=== PATIENT | female | born 2000 | race American Indian/Alaskan Native ===

== ENCOUNTER 2020-04-03 23:13 | Emergency (ER) | payer MEDICAID ==
[2020-04-03] MEDS ORDERED: ACETAMINOPHEN 500 MG TAB PO ONE (23:51)
[2020-04-03] MEDS ORDERED: METOCLOPRAMIDE 10 MG TAB PO ONE (23:51)
[2020-04-04 00:32] LABS: Alanine Aminotransferase 38 units/L (7-56); Albumin 4.3 g/dL (3.9-5); Blood Urea Nitrogen 6 mg/dL (7-17); Calcium 9.1 mg/dL (8.4-10.2); Hemolysis Index 2
[2020-04-04 00:34] LABS: BUN/Creatinine Ratio 12
--- NOTE | 2020-04-04 01:26 | Emergency Department Report ---
<ROSE MARIE HARPER - Last Filed: 04/04/20 03:00> ED Abdominal Pain HPI - General Chief Complaint: Abdominal Pain Stated Complaint: ABD PAIN Source: patient Mode of arrival: Wheelchair Limitations: No Limitations - History of Present Illness Initial Comments: Patient is a A2 19-year-old -[place] female who is approximately 14 weeks gestation and who presents to the ED with complaint of acute onset persistent diffuse abdominal pain with nausea for the last 2 hours. Patient states that the pain has been persistent and worse with any movements. Patient denies vomiting, fever, chills, vaginal bleeding, dysuria, urinary frequency and urgency, vaginal discharge, low back pain, heavy lifting, traumatic injury, chest pain, shortness of breath, fever, chills, diarrhea or low back pain. MD Complaint: abdominal pain -: Sudden, hour(s) (2) Location: diffuse Radiation: none Migration to: no migration Severity: moderate Severity scale (0 -10): 5 Quality: cramping, aching Consistency: constant Improves With: nothing Worsens With: nothing Context: other () Associated Symptoms: denies other symptoms, nausea, anorexia. denies: vomiting, diarrhea, fever, chills, constipation, dysuria, hematemesis, hematochezia, m tho, hematuria, syncope, other - Related Data Allergies Allergy/AdvReac Type Severity Reaction Status Date / Time No Known Allergies Allergy Unverified 04/03/20 23:43 ED Review of Systems Constitutional: denies: chills, fever Eyes: denies: eye pain, eye discharge, vision change ENT: denies: ear pain, throat pain Respiratory: denies: cough, shortness of breath, wheezing Cardiovascular: denies: chest pain, palpitations Endocrine: no symptoms reported Gastrointestinal: abdominal pain, nausea. denies: vomiting, diarrhea, constipation, hematemesis Genitourinary: denies: urgency, dysuria, discharge Musculoskeletal: denies: back pain, joint swelling, arthralgia Skin: denies: rash, lesions Neurological: denies: headache, weakness, paresthesias Psychiatric: denies: anxiety, depression Hematological/Lymphatic: denies: easy bleeding, easy bruising ED Past Medical Hx - Past Medical History Previous Medical History?: No - Surgical History Past Surgical History?: Yes Additional Surgical History: oral surgery - Social History Smoking Status: Never Smoker Substance Use Type: None ED Physical Exam - General Limitations: No Limitations General appearance: alert, in no apparent distress - Head Head exam: Present: atraumatic, normocephalic, normal inspection - Eye Eye exam: Present: normal appearance, PERRL, EOMI Pupils: Present: normal accommodation - ENT ENT exam: Present: normal exam, normal orophraynx, mucous membranes moist, TM's normal bilaterally, normal external ear exam - Neck Neck exam: Present: normal inspection, full ROM. Absent: tenderness - Respiratory Respiratory exam: Present: normal lung sounds bilaterally. Absent: respiratory distress, wheezes, rales, rhonchi, chest wall tenderness, accessory muscle use, prolonged expiratory - Cardiovascular Cardiovascular Exam: Present: regular rate, normal rhythm, normal heart sounds. Absent: systolic murmur, diastolic murmur, rubs, gallop - GI/Abdominal GI/Abdominal exam: Present: soft, normal bowel sounds. Absent: tenderness, guarding, rebound, rigid, hyperactive bowel sounds, hypoactive bowel sounds, organomegaly, mass, bruit - Extremities Exam Extremities exam: Present: normal inspection, full ROM, normal capillary refill - Back Exam Back exam: Present: normal inspection, full ROM. Absent: tenderness, CVA tenderness (R), CVA tenderness (L), muscle spasm, paraspinal tenderness, vertebral tenderness, rash noted - Neurological Exam Neurological exam: Present: alert, oriented X3, CN II-XII intact, normal gait, reflexes normal - Psychiatric Psychiatric exam: Present: normal affect, normal mood - Skin Skin exam: Present: warm, dry, intact, normal color. Absent: rash ED Medical Decision Making - Lab Data Result diagrams: 04/03/20 23:57 04/03/20 23:57 - Radiology Data Radiology results: report reviewed, image reviewed Findings [facility] [address] [place] [address] Ultrasound Report Signed Patient: LISSETT CLEVELAND MR#: [id number] : 2000 Acct:[id number] Age/Sex: 19 / F ADM Date: 04/03/20 Loc: ED Attending Dr: Ordering Physician: KYLE HALL Date of Service: 04/03/20 Procedure(s): US OB >= 14 weeks Fetus Accession Number(s): [id number] cc: KYLE HALL ULTRASOUND OBSTETRIC INDICATION / CLINICAL INFORMATION: abdominal pain. Clinical Gestational Age (GA) in weeks, days: 14, 1 TECHNIQUE: Transabdominal. COMPARISON: None available. FINDINGS: Single intrauterine . Biparietal Diameter = 2.8 cm = 15, 0 weeks, days Head Circumference = 10.1 cm = 14, 5 weeks, days Abdominal Circumference = 7.0 cm = 13, 4 weeks, days Femur Length = 1.5 cm = 14, 3 weeks, days Average Ultrasound Age (AUA) = 14, 3 weeks, days Heart Rate: 149 beats per minute. Estimated Weight in grams (if calculated): Not calculated Estimated Weight Growth Percentile (if calculated): Not calculated Position: cephalic. Cervix: closed. Length in cm (if measured): 2.3 Placenta: posterofundal and free of the os. Amniotic Fluid Volume: normal Amniotic Fluid Index (ABRAM) in cm (if calculated): Not calculated. Maternal Adnexa: No significant abnormality. IMPRESSION: 1. Single, living intrauterine with estimated sonographic age of 14, 3 weeks, days. 2. No acute abnormality. Signer Name: Sudeep Dick MD Signed: 04/04/2020 2:26 AM Workstation Name: [id number] Transcribed By: DT Dictated By: Rose Marie Dick MD Electronically Authenticated By: Rose Marie Dick MD Signed Date/Time: 04/04/20225 DD/ 2 TD/TT: - Medical Decision Making This is a A2 19-year-old -[place] female who is approximately 14 weeks gestation and who presents to the ED with complaint of acute onset persistent diffuse abdominal pain with nausea for the last 2 hours. Patient states that the pain has been persistent and worse with any movements. In the ED, patient is alert and oriented x3 and is not in distress with normal vital signs. Lab test results were reviewed and are all nonactionable. Pelvic ultrasound showed a single, living intrauterine with estimated sonographic age of 14, 3 weeks, days and with a heart rate of 149 bpm. There are no other acute abnormality. Patient was treated for pain in the ED and on reevaluation. Patient pain resolved medications. - Differential Diagnosis UTI; GERD; muscle strain; ovarian cyst ED Disposition Clinical Impression: Abdominal pain during in second trimester Qualifiers: Weeks of gestation: 14 weeks Qualified Code(s): Z3A.14 - 14 weeks gestation of Abdominal pain Qualifiers: Abdominal location: lower abdomen, unspecified Qualified Code(s): R10.30 - Lower abdominal pain, unspecified Disposition: TO HOME OR SELFCARE Is pt being admited?: No Does the pt Need Aspirin: No Condition: Stable Instructions: Abdominal Pain During , Homp-es-Guyg, Abdominal Pain (E D) Additional Instructions: Patient to follow-up with primary care in 2 to 3 days. Patient to follow-up with [facility] in 2 to 3 days. Patient to rest. Patient to increase water. Patient to avoid strenuous exercise or heavy lifting until cleared by [facility]. Patient to take Tylenol as needed for pain. Patient to return to the ER if condition worsens, changes or new symptoms arise. Patient to continue to take vitamin. Referrals: [facility] BRAD[facility] [Other] - 2-3 Days Time of Disposition: 01:25 Print Language: GREEK <EMMANUEL CALDWELL III - Last Filed: 04/04/20 05:25> ED Abdominal Pain HPI - General PUI?: No ED Review of Systems ROS: Stated complaint: ABD PAIN Other details as noted in HPI Constitutional: denies: chills, fever Eyes: denies: eye pain, eye discharge, vision change ENT: denies: ear pain, throat pain Respiratory: denies: cough, shortness of breath, wheezing Cardiovascular: denies: chest pain, palpitations Endocrine: no symptoms reported Gastrointestinal: abdominal pain. denies: nausea, diarrhea Genitourinary: denies: urgency, dysuria, discharge Musculoskeletal: denies: back pain, joint swelling, arthralgia Skin: denies: rash, lesions Neurological: denies: headache, weakness, paresthesias Psychiatric: denies: anxiety, depression Hematological/Lymphatic: denies: easy bleeding, easy bruising ED Past Medical Hx - Past Medical History Previous Medical History?: No - Surgical History Past Surgical History?: Yes - Family History Family history: no significant - Social History Smoking Status: Never Smoker Substance Use Type: None ED Physical Exam - General General appearance: alert, in no apparent distress - Head Head exam: Present: atraumatic, normocephalic - Eye Eye exam: Present: normal appearance - ENT ENT exam: Present: mucous membranes moist - Neck Neck exam: Present: normal inspection - Respiratory Respiratory exam: Present: normal lung sounds bilaterally. Absent: respiratory distress - Cardiovascular Cardiovascular Exam: Present: regular rate, normal rhythm. Absent: systolic murmur, diastolic murmur, rubs, gallop - GI/Abdominal GI/Abdominal exam: Present: soft, normal bowel sounds. Absent: tenderness, guarding, rebound, rigid - Rectal Rectal exam: Present: deferred - Extremities Exam Extremities exam: Present: normal inspection - Back Exam Back exam: Present: normal inspection - Neurological Exam Neurological exam: Present: alert, oriented X3 - Psychiatric Psychiatric exam: Present: normal affect, normal mood - Skin Skin exam: Present: warm, dry, intact, normal color. Absent: rash ED Course Vital Signs 04/03/20 04/04/20 23:36 03:49 Temperature 98.7 F Pulse Rate 76 68 Respiratory 14 16 Rate Blood Pressure 117/70 Blood Pressure 116/68 [Right] O2 Sat by Pulse 100 98 Oximetry - Reevaluation(s) Reevaluation #1: I assumed care patient is a PA. I reviewed the findings and management of this patient in real-time and I have personally seen and examined this patient and participated in the decision making for this patient with the midlevel. Patient is a 19-year-old female that presents emergency room for lower abdominal pain. Patient states that her abdominal pain was an 8 out of 10. Patient states while she is waiting in the waiting room, her abdominal pain has resolved. Patient states her abdominal pain was better with rest and worse with movement. Patient is a G4, . I examined the patient. Patient's exam showed normal limits CV exam, normal S1- S2, no murmurs. Patient's lung exam shows clear to auscultation. Patient abdominal exam shows a nontender abdomen. Patient is alert and oriented x3. Patient has normal mentation. Patient skin is intact. Extremity exam is normal. Back exam is within normal limits and shows no CVA tenderness. Patient had labs done. Patient's labs are essentially unremarkable. Patient's hCG is positive. Patient had an ultrasound done which shows a 14-week IUP. Patient has no other abnormalities on ultrasound. 04/04/20 03:07 Reevaluation #2: I discussed all results and clinical findings with patient. I discussed plan of care with patient. Patient agrees with plan of care. Patient is stable for discharge. Patient will be discharged home. Patient given discharge instruc tions. Patient voiced understanding of discharge instructions. 04/04/20 03:32 ED Medical Decision Making - Lab Data Result diagrams: 04/03/20 23:57 04/03/20 23:57 Critical care attestation.: If time is entered above; I have spent that time in minutes in the direct care of this critically ill patient, excluding procedure time. ED Disposition Is pt being admited?: No Does the pt Need Aspirin: No Time of Disposition: 03:37
--- NOTE | 2020-04-04 02:31 | Ultrasound Report ---
ULTRASOUND OBSTETRIC INDICATION / CLINICAL INFORMATION: abdominal pain. Clinical Gestational Age (GA) in weeks, days: 14, 1 TECHNIQUE: Transabdominal. COMPARISON: None available. FINDINGS: Single intrauterine . Biparietal Diameter = 2.8 cm = 15, 0 weeks, days Head Circumference = 10.1 cm = 14, 5 weeks, days Abdominal Circumference = 7.0 cm = 13, 4 weeks, days Femur Length = 1.5 cm = 14, 3 weeks, days Average Ultrasound Age (AUA) = 14, 3 weeks, days Heart Rate: 149 beats per minute. Estimated Weight in grams (if calculated): Not calculated Estimated Weight Growth Percentile (if calculated): Not calculated Position: cephalic. Cervix: closed. Length in cm (if measured): 2.3 Placenta: posterofundal and free of the os. Amniotic Fluid Volume: normal Amniotic Fluid Index (ABRAM) in cm (if calculated): Not calculated. Maternal Adnexa: No significant abnormality. IMPRESSION: 1. Single, living intrauterine with estimated sonographic age of 14, 3 weeks, days. 2. No acute abnormality. Signer Name: Sudeep Dick MD Signed: 04/04/2020 2:26 AM Workstation Name: [id number]
[2020-04-04 02:48] LABS: Basophils % (Auto) 0.2 % (0.0-1.8); Eosinophils % (Auto) 0.3 % (0.0-4.3); Hematocrit 35.8 % (30.3-42.9); Hemoglobin 12.4 gm/dl (10.1-14.3); Lymphocytes # (Auto) 2.9 K/mm3 (1.2-5.4); Lymphocytes % (Auto) 29.6 % (13.4-35.0); Mean Corpuscular HGB Conc 35 % (30-34); Mean Corpuscular Volume 88 fl (79-97); Monocytes # (Auto) 0.7 K/mm3 (0.0-0.8); Monocytes % (Auto) 7.5 % (0.0-7.3); Platelet Count 310 K/mm3 (140-440); Red Blood Count 4.07 M/mm3 (3.65-5.03); Red Cell Distribution Width 13.5 % (13.2-15.2)
[2020-04-04 04:22] VITALS: BP 116/68
== END 2020-04-04 03:45 | disposition home or self-care (01) ==
LOC: ED 23:13
DX: O26.892 Other specified pregnancy related conditions, second trimester (principal); R10.84 Generalized abdominal pain; R11.0 Nausea; Z3A.14 14 weeks gestation of pregnancy; Z98.890 Other specified postprocedural states
CPT/HCPCS: 36415; 76805; 80053; 84703; 85025